=== PATIENT | male | born 2000 | race Caucasian/White ===

== ENCOUNTER 2025-04-22 13:48 | Outpatient (CLI) | payer OTHER, SELFPAY ==
--- NOTE | 2025-04-22 | SEMFERTCOM_PTH ---
PATIENT: Ren Posey LOC: [facility]#:[id number] AGE/SX: 24/M ROOM: RE04/22/[address]: Kianna Arnold, DO : 2000 BED: DIS: 04/22/2025 SPEC #: [id number] RECD: 04/22/25 14:14 STATUS: SOUT REQ #: [id number] MALIA: 04/22/25 00:[address]: Clayton,Kianna Mcintosh DEPT: [facility] RECD BY: Sara Burden MLT, [facility] ENTERED: 04/22/25 14:14 SP TYPE: Trey [place] Ken HAY DR: Sonu Colon, Procedures: [facility] Fert PAP Stain
--- OUTSIDE RECORDS SUMMARY | 2025-04-22 14:01 | XMS_ITS | Encounter Summary ---
Author Organization [facility] Address [address] [place] [address] Care Team Providers Care Associate Field Service Engineer Name Role Phone Unavailable Primary Care Provider Unavailabl e Encounter Details Date Type Department Care Team (Late st Contact Info) Description 05/08/2019 Lab Requisition [facility] [address] [place] [address] Wesley Kilpatrick MD [address] [place] [address] Social History Tobacco Use Types Packs/Day Years Used Date Smoking Tobacco: Never Assessed Sex and Gender Information Value Date Recorded Sex Assigned at Not on file Legal Sex Male 1:04 PM WEDDING COORDINATOR Gender Identity Not on file Sexual Orientation Not on file documented as of this encounter Plan of Treatment Not on file documented as of this encounter Procedures Procedure Name Priority Date/Time Associated Diagnosis Comments DERMATOPATHOLOGY Routine 05/07/2019 12:0 0 AM WEDDING COORDINATOR documented in this encounter Results * DERMATOPATHOLOGY (05/07/2019 12:00 AM WEDDING COORDINATOR) Case Report Dermatopathology Report Case: [id number] Authorizing Provider: Wesley Kilpatrick MD Collected: 05/07/2019 12:00 AM Ordering Location: [facility] Received: 05/08/2019 01:56 PM Pathologist: Roya Davis MD Specimens: A) - Skin, left post neck B) - Skin, right suprapubic area 9 8:22 PM WEDDING COORDINATOR DERMATOPATHOLOGY LABORATORY Final Diagnosis Specimen A. 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 SKIN, right suprapubic area: LENTIGINOUS MELANOCYTIC NEVUS, COMPOUND TYPE (COMPOUND MELANOCYTIC NEVUS WITH ARCHITECTURAL DISORDER) (D22.5) 9 8:22 PM [facility] DERMATOPATHOLOGY LABORATORY at [address] [facility] Clinical History A-B: R?O Dys nevus 9 8:22 PM [facility] DERMATOPATHOLOGY LABORATORY Gross Description Specimen A: Received is one formalin filled container labeled with the patient's name and designated left post neck. The specimen consists of a shave biopsy measuring 7x5x1 mm. Jar 0. Specimen B: Received is one formalin filled container labeled with the patient's name and designated right suprapubic area. The specimen consists of a shave biopsy measuring 99w09l7 mm. Jar 0. 9 8:22 PM [facility] DERMATOPATHOLOGY LABORATORY Microscopic Description Specimen A. SKIN, left post neck: There is a intradermal biphasic bland melanocytic proliferation composed of small rounded melanocytes, in association with a spindled melanocytic component in a background of sclerotic collagen. By immunohistochemistr y, MART-1/Melan-A highlights both components of the biphasic melanocytic proliferation. Sox-10 highlights the dermal melanocytic proliferation without revealing an intraepidermal component. COMMENT: A combined nevus composed of intradermal common melanocytic nevus and sclerosing nevus is favored. This specimen was also reviewed by Dr. Shu Santo who agrees with the diagnosis. Specimen B. SKIN, right suprapubic area: This is a compound nevus. There is architectural disorder characterized by a focally lentiginous proliferation of melanocytes between irregular nevus nests of cells along the dermal-epidermal junction. There is underlying lamellar fibroplasia of the papillary dermis. The intradermal component is bland in appearance and matures with depth. (Compound Nikolai's Nevus or Compound Dysplastic Nevus). 9 8:22 PM [facility] DERMATOPATHOLOGY LABORATORY Disclaimer An external and internal positive and negative controls are appropriate for the histochemical, immunohistochemical and immunofluorescence stain(s) in this case (if any), except where stated explicitly. The performance characteristics of the stain(s) cited in this report were developed and its performance characteristic determined by the Dermatopathology Laboratory at [facility], directed by Dr. Rosamaria Gates. These tests need not be, and therefore are not, approved by the [place] Food and Drug Administration. The tests are used for clinical purposes. Billing Codes Specimen Charges Stain Charges 98767 61032 1 1 [id number] 50849 1 1 9 8:22 PM WEDDING COORDINATOR DERMATOPATHOLOGY LABORATORY Embedded Images 9 8:22 PM WEDDING COORDINATOR DERMATOPATHOLOGY LABORATORY Pathology/Cytology TISSUE SPECIMEN FROM SKIN / Unknown 05/07/2019 05/08/2019 1:56 PM WEDDING COORDINATOR Miscellaneous samples (specimen) TISSUE SPECIMEN FROM SKIN / Unknown 05/07/2019 05/08/2019 1:56 PM WEDDING COORDINATOR Wesley Kilpatrick MD LAB - PATHOLOGY/CYTOLOGY ORD ERABLES Final Result DERMATOPATHOLOGY LABORATORY [facility] - Department of Dermatology [address] [facility], 5th Floor Lab [address] [phone] documented in this encounter Visit Diagnoses Not on filedocumented in this encounter
--- OUTSIDE RECORDS SUMMARY | 2025-04-22 14:01 | XMS_ITS | Clinical Summary ---
Author Organization [facility] Address [address] [place], [place] [address] [address] Phone Care Team Providers Care Electrician Third Name Role Phone Sonu Colon MD Primary Care Provider [phone] Allergies No known active allergies Medications oxyCODONE (ROXICODONE) 5 MG Tablet Take 1 Tab by mouth every 4 hours as needed for Severe pain. 10 Tab 0 Active Additional Information Patient not taking.Reported on 06/15/2020 Active Problems Problem Noted Date Diagnosed Date Acute appendicitis with loca lized peritonitis, without perforation, abscess, or gangrene 08/21/2019 Immunizations Immunization Administration Dates Next Due Influenza Vaccine greater than 3 yrs 05/29/2019 Family History Medical History Relation Name Comments No Known Problems Father Cancer Maternal Grandfather Breast Cancer Maternal Grandmother Hypertension Mother Hypothyroidism Mother Stroke Paternal Grandfather High Cholesterol Paternal Grandmother Other-comment Paternal Grandmother MVP Relation Name Status Comments Brother Alive Father Alive Maternal Grandfather Maternal Grandmother Mother Alive Paternal Grandfather Alive Paternal Grandmother Alive Social History Tobacco Use Types Packs/Day Years Used Date Smoking Tobacco: Never Smokeless Tobacco: Never Tobacco Cessation:Counseling Given: Not Answered Alcohol Use Standard Drinks/Week Comments Yes 0 (1 standard drink = 0.6 oz pur e alcohol) couple on the weekend Sexually Active Control Partners Comments Yes Female Sex and Gender Information Value Date Recorded Sex Assigned at Not on file Legal Sex Male 9:05 PM CDT Gender Identity Not on file Sexual Orientation Not on file Last Filed Vital Signs Vital Sign Reading Time Taken Comments Blood Pressure 130/62 11/23/2023 2:48 PM CDT Pulse 78 11/23/2023 2:48 PM CDT Temperature 36.6 C (97.8 F) 11/23/2023 2:48 PM CDT Respiratory Rate 20 11/23/2023 2:48 PM CDT Oxygen Saturation 97% 11/23/2023 2:48 PM CDT Inhaled Oxygen Concentration - - Weight 109.8 kg (242 lb) 06/15/2020 12:04 PM 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 Height 193 cm (6' 4) 08/21/2019 10:50 PM CDT Body Mass Index 29.46 08/21/2019 10:50 PM CDT Plan of Treatment Health Maintenance Due Date Last Done Comments Hepatitis C Virus (HCV) Screening 2000 Influenza Immunization (#1) 02/10/202506/13, 04/14/2020, 05/29/2019, Additional history exists SARS-COV-2 Immunization ( season) 2025 07/25/2021, 07/04/2021 Respiratory Syncytial Virus (RSV) Immunization (Adult) (1 - 1-dose 75+ series) 2073 Hepatitis B Immunization Completed 999, 2000, 2000 DTaP/Tdap/Td Immunization Discontinued 2009, 09/01/2003, 12/01/1999, Additional history exists TdaP Immunization Completed 09/14/2009 Human Papillomavirus (HPV) Immunization Completed 05/05/2014, 11/11/2013, 03/27/2013 Meningococcal Immunization (ACWY) Completed 12/29/2014, 12/08/2010 Pneumococcal Immunization Combined Aged Out No longer eligible based on patient's age to complete this topic Rotavirus Immunization Aged Out No lo nger eligible based on patient's age to complete this topic Insurance [facility] Advance Directives * Full Code (Latest Code Status on File) Date Activated Date Inactivated Comments 08/21/2019 10:52 PM 08/22/2019 8:14 PM CPR-Full Tr eatment: FULL ARREST: Attempt Resuscitation/CPR wit intubation and mechanical ventilation. PRE-ARREST: Use entire range of life support measures to stabilize the patient. Care Teams Electrician Third Relationship Specialty Start Date End Date Sonu Colon MD [facility], [address] [place], [place] [id number] PCP - General Infectious Disease 08/21/19
--- OUTSIDE RECORDS SUMMARY | 2025-04-22 14:01 | XMS_ITS | Clinical Summary ---
Author Organization [facility] [address] Address [address] [place] [address] Phone Care Team Providers Care Viticulture Teacher Name Role Phone Sonu Colon MD Primary Care Provider [phone] Allergies No known active allergies Medications meloxicam (MOBIC) 15 mg tabletIndication s:Neck pain Take 1 tablet (15 mg total) by mouth daily 30 tablet 1 10/12/2023 Active Active Problems Problem Noted Date Diagnosed Date Overweight (BMI 25.0-29.9) 10/12/2023 Overview (11/08/2023): Weight loss, no longer obese as of October 2023. Assessment & Plan (05/13/2018 8:55 PM PUMP INSTALLER): He used to play sports in high school. Since getting out, he has been less active and has put on some weight. He is technically in an obese category. We talked about caloric intake, staying active, correct balance of nutrients. He has already lost some weight from his peak. He will continue to work on this and follow-up annually or sooner as needed. Neck pain 10/02/2023 Overview (10/12/2023): Posterior neck and bilateral upper shoulder pain with radiation of tightness into deltoids and upper arms. Neurological exam unremarkable. Assessment & Plan (10/14/2023 1:29 PM CDT): New problem, uncontrolled. He developed some posterior neck and upper shoulder pain about 10 days ago. He has trouble describing it very precisely. It has not a sharp or burning discomfort. It is more of a tightness that sometimes radiates into the deltoids and upper arms bilaterally. There is no weakness in his arms. There might be some subtle sensory changes. He also notes discomfort with movement of his neck, both rotation and flexion. He went to urgent care where they gave him steroids and a muscle relaxer which did not help. He has been to the chiropractor twice for manipulations which did not help. He denies fever or chills, headaches, bowel or bladder incontinence or retention. Exam is notable for mild discomfort with rotation and flexion of the neck. There is no tenderness of the superior trapezius or lower neck muscles. Reflexes are absent in both arms, normal in the legs. This could be his baseline. Remainder of the neurological and general exam is normal. He has moderate neck discomfort without any evidence for neurological deficits other than absent upper extremity deep tendon reflexes. We ordered plain films of the C-spine. We discussed the option of additional imaging with MRI which we would normally order if there were motor or sensory neurological deficits, or if there is failure to improve with conservative treatment. We recommended a trial of daily nonsteroidal for 2-3 weeks, risks of medication discussed. We also ordered physical therapy evaluation and treatment. 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 05/08/2018 Overview (09/16/2016): Vwsldkc-Zlxgrz-Ebrhgaziq syndrome Developmental reading disorder 09/17/2012 05/08/2018 Overview (09/16/2016): Developmental reading disability Medical examinations/reports status 09/17/2012 05/08/2018 Overview (09/16/2016): Health care maintenance Pectus carinatum 09/17/2012 05/08/2018 Overview (09/17/2016): Pectus carinatum Immunizations Immunization Administration Dates Next Due DTaP 09/01/2003, 9,1998,10/10 DTaP 5 Pertussis 12/01/1999 HPV, Quadrivalent 05/05/2014,11/11/2013,03/27/20 13 Hep B, Adolescent or Pediatric 03/01/1999,1998,1998 Hib (HbOC) 12/01/1999, 9,1998,10/10 IPV 09/01/2003, 0,1998,10/10 Influenza, Quadrivalent, Spl it, Intramuscular 04/18/2016 Influenza, Quadrivalent, Spl it, Preservative Free, Intramuscular 07/04/2021,04/14/2020,04/05/2019,03/12,03/28/2017 04/05/2020 Influenza, Split 03/27/2013,04/03/2012 Influenza, Trivalent, Cell Culture-based MDCK, Preservative Free, Antibiotic Free, Intramuscular 03/26/2014 Influenza, Trivalent, IM (MDV) 05/29/2019,2014 Influenza, Trivalent, Preser vative Free, Intramuscular 04/07/2014,04/22/2011 MMR 09/01/2003,09/03/1999 Meningococcal MCV4P (Menactra) 12/29/2014 Meningococcal Polysaccharide (Menomune) 12/08/2010 Tdap 09/14/2009 Varicella 01/27/2014,09/03/1999 Surgical History Surgery Date Site/Laterality Comments LAPAROSCOPIC APPENDECTOMY 08/22/2019 Dr. Euceda, [facility]. 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 Non morbid obesity 04/12/2017 Weight loss, no longer obese as of October 2023. Strep throat 10/20/2021 Urgent care Family History Medical History Relation Name Comments Breast cancer Maternal Grandmother Hypertension Mother Lung cancer Other Family history of Cancer, lung; Relation Name Status Comments Maternal Grandmother Mother Other Social History Tobacco Use Types Packs/Day Years Used Date Smoking Tobacco: Never Smokeless Tobacco: Never Tobacco Cessation:Counseling Given: Not Answered PHQ-2 Answer Date Recorded PHQ-2 Score 0 02/02/2019 Sex and Gender Information Value Date Recorded Sex Assigned at Not on file Legal Sex Male 1:43 AM PUMP INSTALLER Gender Identity Not on file Sexual Orientation Not on file History Length Weight Head Circum Date/Time Gestation Age D/C Weight APGARs Delivery Method Feeding Method 9 lb (4.082 kg) 2000 42 wks Vaginal, Spontaneous Labor Duration Days In Hospital Hospital Name Hospital Location Last Filed Vital Signs Vital Sign Reading Time Taken Comments Blood Pressure 128/86 10/12/2023 3:16 PM CDT Pulse 53 10/12/2023 3:16 PM CDT Temperature 36.2 C (97.1 F) 10/12/2023 3:16 PM CDT Respiratory Rate 20 10/12/2023 3:16 PM CDT Oxygen Saturation 99% 10/12/2023 3:16 PM CDT Inhaled Oxygen Concentration - - Weight 104.4 kg (230 lb 3.2 oz) 10/12/2023 3:16 PM CDT Height 193 cm (6' 3.98) 10/12/2023 3:16 PM CDT Body Mass Index 28.03 10/12/2023 3:16 PM CDT Plan of Treatment Health Maintenance Due Date Last Done Comments Hepatitis C Screening 2000 Depression Screening 05/08/2019 05/08/2018 Regular Well Visit/Exam 18-64 05/08/2019 05/08/2018 DTaP/Tdap/Td Vaccine (7 - Td or Tdap) 09/15/2019 09/14/2009, 09/01/2003, 12/01/1999, Additional history exists Covid-19 Vaccine ( season) 2025 07/25/2021, 07/04/2021 Influenza Vaccine (#1) 2025 , 04/14/2020, 05/29/2019, Additional history exists Hepatitis B Screening Completed 03/01/1999 , 2000, 1998 Varicella Vaccines Completed 01/27/2014, 09/03/1999 HPV Vaccines Completed 05/05/2014, 07/2013, 03/27/2013 Pneumococcal vaccine <65 Aged Out No longer eligible based on patient's age to complete this topic Insurance [facility] Member Subscriber Plan / Payer (Ef fective 2018-Present) Name:Ren Crouch Relation to Subscriber:Self Name:REN CROUCH Payer ID:[id number] (NAIC) Type: LINSEY Address: [facility] [id number] [place] [address] [facility] Care Teams Viticulture Teacher Relationship Specialty Start Date End Date Sonu Colon MD [address] [place] [address] PCP - General Internal Medicine 10/03/23
--- OUTSIDE RECORDS SUMMARY | 2025-04-22 14:01 | XMS_ITS | Clinical Summary ---
Author Organization [facility] Address [address] [place] [address] Care Team Providers Care Water Team Leader Name Role Phone Unavailable Primary Care Provider Unavailabl e Source Comments [facility],non-owned Affiliates and Associated Physician Practices is amultiple site organization consisting of ambulatory clinics and hospital sitesin [place], [place], [place] and [place]. This disclosure is being madepursuant to the Care Everywhere program and may not contain all information available regarding this patient. 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 Gender Identity Not on file Sexual Orientation Not on file Plan of Treatment Health Maintenance Due Date Last Done Comments HIV SCREENING 2013 HPV VACCINE (1 - Male 3-dose series) 2013 HEPATITIS C SCREENING 08/23/2016 DTAP/TDAP/TD VACCINES (1 - Tdap) 2017 HEPATITIS B VACCINE (1 of 3 - 19+ 3-dose series) 2017 DEPRESSION SCREENING 06/12/2024 COVID-19 VACCINE (1 - 2023-2 5 season) 2025 INFLUENZA VACCINE (#1) 2025 ZOSTER VACCINE (1 of 2) 2048 HIB VACCINE Aged Out No longer eligi ble based on patient's age to complete this topic MENINGOCOCCAL (Group B) VACC INE SHARED DECISION-MAKING Aged Out No longer eligibl e based on patient's age to complete this topic MENINGOCOCCAL GROUPS A/C/Y/W VACCINE Aged Out No longer eligible b ased on patient's age to complete this topic PNEUMOCOCCAL VACCINE Aged Out No long er eligible based on patient's age to complete this topic Insurance [employer]
[2025-04-22 15:11] LABS: Liquefaction Semen Complete in 30 min. (<30 minutes); Semen Immotility 95 %; Semen Non-Progressive Motility 5 %; Semen Progressive Motility 0 % (>32); Semen Total Motility 5 (>40% (PM+NP)); Volume Semen 3.0 mL (1.5-5.0)
[2025-04-22 15:12] LABS: Semen Morphology Result to Follow; Sperm Count 23.5 Mil/mL (60-150 million/mL)
== END 2025-04-22 13:49 | disposition home or self-care (01) ==
LOC: CHSLAB 13:55
PROVIDERS: PCP Internal Medicine Infectious Disease; Visit Provider Obstetrics & Gynecology Obstetrics
DX: Z31.41 Encounter for fertility testing (principal)
CPT/HCPCS: 88160; 89320

== ENCOUNTER 2025-05-12 12:55 | Outpatient (CLI) | payer OTHER, SELFPAY ==
--- NOTE | 2025-05-12 | SEMFERTCOM_PTH ---
PATIENT: Ren Posey LOC: [facility]#:[id number] AGE/SX: 24/M ROOM: RE05/12/[address]: Kianna Arnold, DO : 2000 BED: DIS: 05/12/2025 SPEC #: [id number] RECD: 05/12/25 13:08 STATUS: ENT REQ #: [id number] MALIA: 05/12/25 00:[address]: Clayton,Kianna Mcintosh DEPT: [facility] RECD BY: Sara Burden MLT, [facility] ENTERED: 05/12/25 13:08 SP TYPE: Trey Andersont Ken HAY DR: Sonu Colon, Procedures: [facility] Fert PAP Stain
[2025-05-12 14:02] LABS: Semen Non-Progressive Motility 0 %; Semen Progressive Motility 0 % (>32); Volume Semen 1.0 mL (1.5-5.0)
[2025-05-12 14:03] LABS: Semen Immotility 100 %; Semen Morphology Result to Follow; Semen Total Motility 0 (>40% (PM+NP)); Sperm Count 2.4 Mil/mL (60-150 million/mL)
--- OUTSIDE RECORDS SUMMARY | 2025-05-12 14:06 | XMS_ITS | Clinical Summary ---
Author Organization [facility] Address [address] [place], [place] [address] [address] Phone Care Team Providers Care Digital Media Analyst Name Role Phone Sonu Colon MD Primary Care Provider [phone] Allergies No known active allergies Medications oxyCODONE [...] 109.8 kg (242 lb) 06/15/2020 12:04 PM COP EXAMINER Height 193 cm (6' 4) 08/21/2019 10:50 [...] Additional history exists TdaP Immunization Completed 09/14/2009 Varicella Immunization Completed 01/27/2014, 1999 Human Papillomavirus (HPV) Immunization Completed 05/05/2014, 11/11/2013, 03/27/2013 Meningococcal Immunization (ACWY) Completed 12/29/2014, 12/08/2010 Pneumococcal Immunization Combined Aged Out No longer eligible based on patient's age to complete this topic Rotavirus Immunization Aged Out No lo nger eligible based on patient's age to complete [place] [address] [facility] Advance Directives * Full Code (Latest Code Status on File) Date Activated Date Inactivated Comments 08/21/2019 10:52 PM 08/22/2019 8:14 PM CPR-Full Tr eatment: FULL ARREST: Attempt Resuscitation/CPR wit intubation and mechanical ventilation. PRE-ARREST: Use entire range of life support measures to stabilize the patient. Care Teams Digital Media Analyst Relationship Specialty Start Date End Date Sonu Colon MD [employer], [address] [place] [address] PCP - General Infectious Disease 08/21/19
--- OUTSIDE RECORDS SUMMARY | 2025-05-12 14:06 | XMS_ITS | Clinical Summary ---
Author Organization [facility] [address] Address [address] [place] [address] Phone Care Team Providers Care Card Writer Hand Name Role Phone Sonu Colon MD Primary Care Provider [phone] Allergies No known active allergies Medications meloxicam (MOBIC) 15 mg tabletIndication s:Neck pain Take 1 tablet (15 mg total) by mouth daily 30 tablet 1 10/12/2023 Active Active Problems Problem Noted Date Diagnosed Date Overweight (BMI 25.0-29.9) 10/12/2023 Overview (11/08/2023): Weight loss, no longer obese as of October 2023. Assessment & Plan (05/13/2018 8:55 PM HOSPICE CARE CONSULTANT): He used to play sports in high [...] secondary patellar center 09/17/2012 05/08/2018 Overview (09/16/2016): Oufnjsm-Uwhgzr-Urysegzae syndrome Developmental reading disorder 09/17/2012 05/08/2018 Overview (09/16/2016): Developmental reading disability Medical examinations/reports status 09/17/2012 05/08/2018 Overview (09/16/2016): Health care maintenance Pectus carinatum 09/17/2012 05/08/2018 Overview (09/17/2016): Pectus carinatum Encounters Date Type Department Care Team Description 05/03/2025 Results [facility] [address] [place] [phone] Sonu Colon MD SCAN - LABS 05/01/2025 Telephone [facility] [address] [place] [phone] Sonu Colon MD wants lab results 05/01/2025 Orders Only [facility] [address] [place] [phone] Sonu Colon MD 04/23/2025 Results Follow-Up [facility] [address] [place] [phone] Sonu Colon MD SCAN - LABS 04/23/2025 Orders Only [facility] [address] [place] [phone] Sonu Colon MD from Last 3 Months Immunizations Immunization Administration Dates Next Due DTaP [...] Juvenile osteochondrosis of secondary patellar center 09/17/2012 Amada syn drome Pectus carinatum 09/17/2012 Pectus carinatu [...] on file Legal Sex Male 1:43 AM HOSPICE CARE CONSULTANT Gender Identity Not on file Sexual Orientation [...] 2025 07/25/2021, 07/04/2021 Influenza Vaccine (#1) 2025 2, 04/14/2020, 05/29/2019, Additional history exists Hepatitis B Screening Completed 03/01/1999 , 1998, 1998 Varicella Vaccines Completed 01/27/2014, 09/03/1999 HPV Vaccines Completed 05/05/2014, 0607/2013, 03/27/2013 Pneumococcal vaccine <65 Aged Out No longer eligible based on patient's age to complete this topic Procedures Procedure Name Priority Date/Time Associated Diagnosis Comments SCAN - LABS 05/01/2025 1:09 PM HOSPICE CARE CONSULTANT SCAN - LABS 04/23/2025 10:59 AM HOSPICE CARE CONSULTANT from Last 3 Months Results * SCAN - LABS (05/01/2025 1:09 PM HOSPICE CARE CONSULTANT) Sonu Colon MD Final Result * SCAN - LABS (04/23/2025 10:59 AM HOSPICE CARE CONSULTANT) us Sonu Colon MD Final Result from Last 3 Months Insurance [facility] Member Subscriber Plan / Payer (Ef fective 2018-Present) Name:Ren Crouch Relation to Subscriber:Self Name:REN CROUCH Payer ID:[id number] (NAIC) Type:[facility] Address: [address] [place] [address] [facility] C[facility] Care Teams Card Writer Hand Relationship Specialty Start Date End Date Sonu Colon MD [address] [place] [address] PCP - General Internal Medicine 10/03/23
--- OUTSIDE RECORDS SUMMARY | 2025-05-12 14:06 | XMS_ITS | Encounter Summary ---
Author Organization [facility] Address [address] [facility] [place] [address] Care Team Providers Care Sand Slinger Name Role Phone Unavailable Primary Care Provider Unavailabl e Encounter Details Date Type Department Care Team (Late st Contact Info) Description 05/08/2019 Lab Requisition [facility] [address] [place] [address] Wesley Kilpatrick MD [address] [place] [address] Social History Tobacco Use Types Packs/Day Years Used Date Smoking Tobacco: Never Assessed Sex and Gender Information Value Date Recorded Sex Assigned at Not on file Legal Sex Male 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 Gender Identity Not on file Sexual Orientation Not on file documented as of this encounter Plan of Treatment Not on file documented as of this encounter Procedures Procedure Name Priority Date/Time Associated Diagnosis Comments DERMATOPATHOLOGY Routine 05/07/2019 12:0 0 AM CLAIMS ADJUSTER CROP documented in this encounter Results * DERMATOPATHOLOGY (05/07/2019 12:00 AM CLAIMS ADJUSTER CROP) Case Report Dermatopathology Report Case: [id number] Authorizing Provider: Wesley Kilpatrick MD Collected: 05/07/2019 12:00 AM Ordering Location: [facility] Received: 05/08/2019 01:56 PM Pathologist: Roya Davis MD Specimens: A) - Skin, left post neck B) - Skin, right suprapubic area 9 8:22 PM [facility] DERMATOPATHOLOGY LABORATORY Final Diagnosis Specimen A. 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 SKIN, right suprapubic area: LENTIGINOUS MELANOCYTIC NEVUS, COMPOUND TYPE (COMPOUND MELANOCYTIC NEVUS WITH ARCHITECTURAL DISORDER) (D22.5) 9 8:22 PM [facility] DERMATOPATHOLOGY LABORATORY at [address] [facility] Clinical History A-B: R?O Dys nevus 9 8:22 PM [facility] DERMATOPATHOLOGY LABORATORY Gross Description Specimen A: Received is one formalin filled container labeled with the patient's name and designated left post neck. The specimen consists of a shave biopsy measuring 7x5x1 mm. Jar 0. Specimen B: Received is one formalin filled container labeled with the patient's name and designated right suprapubic area. The specimen consists of a shave biopsy measuring 56p27f6 mm. Jar 0. 9 8:22 PM [facility] DERMATOPATHOLOGY LABORATORY Microscopic Description Specimen A. [...] or Compound Dysplastic Nevus). 9 8:22 PM [facility] DERMATOPATHOLOGY LABORATORY Disclaimer An external and internal positive and negative controls are appropriate for the histochemical, immunohistochemical and immunofluorescence stain(s) in this case (if any), except where stated explicitly. The performance characteristics of the stain(s) cited in this report were developed and its performance characteristic determined by the Dermatopathology Laboratory at [facility], directed by Dr. Rosamaria Gates. These tests need not be, and therefore are not, approved by the [place] Food and Drug Administration. The tests are used for clinical purposes. Billing Codes Specimen Charges Stain Charges 96975 69759 1 1 [id number] 1 1 9 8:22 PM [facility] DERMATOPATHOLOGY LABORATORY Embedded Images 9 8:22 PM [facility] DERMATOPATHOLOGY LABORATORY Pathology/Cytology TISSUE SPECIMEN FROM SKIN / Unknown 05/07/2019 05/08/2019 1:56 PM CLAIMS ADJUSTER CROP Miscellaneous samples (specimen) TISSUE SPECIMEN FROM SKIN / Unknown 05/07/2019 05/08/2019 1:56 PM CLAIMS ADJUSTER CROP Wesley Kilpatrick MD LAB - PATHOLOGY/CYTOLOGY ORD ERABLES Final Result DERMATOPATHOLOGY LABORATORY [facility] - Department of Dermatology [address] [facility], 5th Floor Lab [address] [phone] documented in this encounter Visit Diagnoses Not on filedocumented in this encounter
--- OUTSIDE RECORDS SUMMARY | 2025-05-12 14:06 | XMS_ITS | Encounter Summary ---
Author Organization [facility] Address [address] [place] [address] Care Team Providers Care Recapper Name Role Phone Sonu Colon MD Primary Care Provider [phone] Encounter Details Date Type Department Care Team (Late st Contact Info) Description 05/03/2025 Results Follow-Up [facility] [place] [facility] [address] 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
--- OUTSIDE RECORDS SUMMARY | 2025-05-12 14:06 | XMS_ITS | Encounter Summary ---
Author Organization [facility] Address [address] [place] [address] Care Team Providers Care Slice Plug Cutter Operator Helper Name Role Phone Sonu Colon MD Primary Care Provider [phone] Encounter Details Date Type Department Care Team (Late st Contact Info) Description 04/23/2025 Results Follow-Up [facility] [place] [facility] [address] [facility] [place] [address] Sonu Colon MD [address] [place] [address] SCAN - LABS Social History Tobacco Use Types Packs/Day Years Used Date Smoking Tobacco: Never Smokeless Tobacco: Never PHQ-2 Answer Date Recorded PHQ-2 Score 0 02/02/2019 Sex and Gender Information Value Date Recorded Sex Assigned at Not on file 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
--- OUTSIDE RECORDS SUMMARY | 2025-05-12 14:06 | XMS_ITS | Clinical Summary ---
Author Organization [facility] Address [address] [place] [address] Care Team Providers Care Electronics Maintenance Technician Name Role Phone Unavailable Primary Care Provider Unavailabl e Source Comments [facility],non-owned Affiliates and Associated Physician Practices is amultiple site organization consisting of ambulatory clinics and hospital sitesin [place], [place], [place] and [place]. This disclosure is being madepursuant to the Care Everywhere program and may not contain all information available regarding this patient. 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
== END 2025-05-12 12:56 | disposition home or self-care (01) ==
LOC: CHSLAB 12:57
PROVIDERS: PCP Internal Medicine Infectious Disease; Visit Provider Obstetrics & Gynecology Obstetrics
DX: Z31.41 Encounter for fertility testing (principal)
CPT/HCPCS: 88160; 89320